=== PATIENT | female | born 1985 | race Caucasian/White ===

== ENCOUNTER → 2016-09-29 | Outpatient (CLI) | payer BC, OTHER ==
[~2016-09-29] VITALS: Ht 170.2 cm; Wt 156.1 kg
[~2016-09-29] MED LIST: ADVIL,NUPRIN,M200 MG PO; ALLEGRA-D 121 TABLET PO; AMOXICILLIN500 M1 PO; CALCIUM-MAGNES1 EA11 PO; HEPARIN SO5000 UNITS SC; HYDROCODON-ACE1 EAC7 PO; IBUPROFEN800 MG PO; IRON325 M1 PO; LABETALOL HCL200 MG PO; LOVENOX40 MG/0.4 SC; MAGNESIUM400 M1 PO; PRENATAL TABLE1 EAC3 PO; TUMS500 MG PO
[2016-10-05 10:39] LABS: INTERNAL CONTROL VALID? YES
== END | disposition home or self-care (01) ==
LOC: AMB 12:00
PROVIDERS: Anesthesiology
DX: K29.80 Duodenitis without bleeding (principal); K62.5 Hemorrhage of anus and rectum; K52.9 Noninfective gastroenteritis and colitis, unspecified; K21.9 Gastro-esophageal reflux disease without esophagitis; R11.0 Nausea; I10 Essential (primary) hypertension; K64.8 Other hemorrhoids; Z80.0 Family history of malignant neoplasm of digestive organs; D47.3 Essential (hemorrhagic) thrombocythemia; E73.9 Lactose intolerance, unspecified; Z82.49 Family history of ischemic heart disease and other diseases of the circulatory system; E66.01 Morbid (severe) obesity due to excess calories; Z68.43 Body mass index [BMI] 50.0-59.9, adult; Z88.1 Allergy status to other antibiotic agents; Z88.2 Allergy status to sulfonamides; Z91.041 Radiographic dye allergy status
CPT/HCPCS: 84703; 88305; 93005; J2250; J3010